=== PATIENT | male | born 1990 | race Caucasian/White ===

== ENCOUNTER 2020-12-01 14:56 | Emergency (ER) | payer OTHER ==
[2020-12-01] MEDS ORDERED: NAPROXEN500 MG PO (17:10)
== END 2020-12-01 17:29 | disposition home or self-care (01) ==
LOC: FER 14:56
DX: S90.31XA Contusion of right foot, initial encounter (principal); J45.909 Unspecified asthma, uncomplicated; F17.200 Nicotine dependence, unspecified, uncomplicated; Z88.8 Allergy status to other drugs, medicaments and biological substances; Z88.5 Allergy status to narcotic agent; X58.XXXA Exposure to other specified factors, initial encounter
CPT/HCPCS: 73630; J1885